=== PATIENT | male | born 1930 | race Caucasian/White ===

== ENCOUNTER 2017-02-27 17:06 | Emergency (ER) | payer MEDICARE | END 2017-02-27 18:29 | disposition home or self-care (01) | LOC: ERS 17:06 | DX: T16.2XXA Foreign body in left ear, initial encounter (principal); S00.412A Abrasion of left ear, initial encounter; I48.2 Chronic atrial fibrillation; I10 Essential (primary) hypertension; X58.XXXA Exposure to other specified factors, initial encounter | CPT/HCPCS: 99282 ==

== ENCOUNTER 2017-04-03 12:15 | Emergency (ER) | payer MEDICARE, OTHER ==
[2017-04-03 13:13] LABS: Hematocrit 34.1 % (42.0-52.0); Mean Platelet Volume 7.3 fL (7.4-10.4); Red Blood Cell (RBC) Count 3.63 mill/uL (4.70-6.10); White Blood Cell (WBC) Count 3.3 thou/uL (4.8-10.8)
[2017-04-03 13:37] LABS: ALT (SGPT) Less than 7 U/L (8-55); AST (SGOT) 10 U/L (5-34); Alkaline Phosphatase 70 U/L (40-150); Anion Gap 11 mmol/L (10-20); BUN (Urea Nitrogen) 11 mg/dL (8.4-25.7); Bilirubin, Total 0.4 mg/dL (0.2-1.2); Calc. Creatinine Clearance 0 mL/min (70-130); Calcium 8.1 mg/dL (7.8-10.44); Carbon Dioxide 23 mmol/L (23-31); Chloride 105 mmol/L (98-107); Estimated GFR-MDRD 80; Globulin 2.5 g/dL (2.4-3.5); Protein, Total 5.9 g/dL (5.8-8.1)
[2017-04-03 13:38] LABS: Troponin I Less than 0.010 ng/mL (< 0.028)
[2017-04-03 13:43] LABS: Band 1 % (5-11); Neutrophil 83 % (42-75)
--- NOTE | 2017-05-09 12:48 | EKG ---
Test Reason : HX AFIB Blood Pressure : / mmHG Vent. Rate : 067 BPM Atrial Rate : 080 BPM P-R Int : 000 ms QRS Dur : 096 ms QT Int : 446 ms P-R-T Axes : 000 000 190 degrees QTc Int : 471 ms Atrial fibrillation Prolonged QT Abnormal ECG Baseline Artifact Present Confirmed by PANCHO PADILLA, LILIA ([id number]), editor index GLADYS RHOADES ([id number]) on 05/09/2017 12:47:59 PM Referred By: DR DELEON Confirmed By:LILIA DELEON MD
== END 2017-04-03 14:33 | disposition home or self-care (01) ==
LOC: ERS 12:15
DX: R55 Syncope and collapse (principal); I48.91 Unspecified atrial fibrillation; I10 Essential (primary) hypertension; Z79.899 Other long term (current) drug therapy; Z79.02 Long term (current) use of antithrombotics/antiplatelets
CPT/HCPCS: 36415; 80053; 82553; 84484; 85025; 93005

== ENCOUNTER 2017-05-29 13:18 | Outpatient (CLI) | payer MEDICARE ==
[2017-05-29] MEDS ORDERED: Iopamidol 370 76% 100 ML VIAL ONE (16:24)
== END 2017-05-29 13:19 | disposition home or self-care (01) ==
LOC: BICCT 13:18
PROVIDERS: ATTEND Internal Medicine Cardiovascular Disease
DX: I71.2 Thoracic aortic aneurysm, without rupture (principal)
CPT/HCPCS: 71275

== ENCOUNTER 2018-11-27 09:24 | Outpatient (CLI) | payer MEDICARE ==
--- NOTE | 2018-11-27 11:53 | CT ---
CT arteriogram chest with IV contrast and 3-D imaging HISTORY: Thoracic aortic aneurysm. Follow-up. COMPARISON: 05/29/2017 and 05/16/2016. FINDINGS: There is good contrast opacification of the thoracic aorta with normal branching of the gre at vessels at the aortic arch. Dilatation of the ascending aorta is again demonstrated. AP diameter of 4.9 cm is unchanged. Oblique diameter of 5.2 cm is also unchanged descending thoracic aorta is of normal caliber. Pulmonary arteries are partially opacified with no large central filling defect. No enlarged lymph nodes or pleural fluid. No pneumothorax. Areas of scarring and nonspecific lymph nodes are stable. Degenerative changes thoracic spine. IMPRESSION: Stable CT appearance of the a ascending thoracic aortic aneurysm. No new abnormalities. Atherosclerosis.
[2018-11-27] MEDS ORDERED: Iopamidol 370 76% 100 ML VIAL ONE (13:33)
== END 2018-11-27 09:25 | disposition home or self-care (01) ==
LOC: CT 09:24
PROVIDERS: ATTEND Internal Medicine Cardiovascular Disease
DX: I71.2 Thoracic aortic aneurysm, without rupture (principal); I35.1 Nonrheumatic aortic (valve) insufficiency; R93.1 Abnormal findings on diagnostic imaging of heart and coronary circulation; I70.90 Unspecified atherosclerosis
CPT/HCPCS: 71275; 82565; Q9967

== ENCOUNTER 2019-04-16 14:27 | Observation (INO) | payer MEDICARE ==
[2019-04-16 15:11] LABS: Hemoglobin 11.7 g/dL (14.0-18.0); Mean Corpuscular HGB CONC 33.2 g/dL (32.0-36.0); Mean Corpuscular Hemoglobin 30.3 pg (27.0-31.0); Mean Corpuscular Volume 91.5 fL (78.0-98.0); Mean Platelet Volume 8.3 fL (7.4-10.4); Platelet Count 168 thou/uL (130-400); RBC Distribution Width 11.6 % (11.5-14.5); Red Blood Cell (RBC) Count 3.86 mill/uL (4.70-6.10); White Blood Cell (WBC) Count 3.5 thou/uL (4.8-10.8)
[2019-04-16 15:26] LABS: ALT (SGPT) 8 U/L (8-55); AST (SGOT) 13 U/L (5-34); Albumin 4.3 g/dL (3.4-4.8); Alkaline Phosphatase 77 U/L (40-110); Anion Gap 12 mmol/L (10-20); BUN (Urea Nitrogen) 14 mg/dL (8.4-25.7); Bilirubin, Total 0.5 mg/dL (0.2-1.2); CK (CPK) 58 U/L (30-200); Calc. Creatinine Clearance 0 mL/min (70-130); Carbon Dioxide 27 mmol/L (23-31); Chloride 100 mmol/L (98-107); Estimated GFR-MDRD 66; Globulin 2.1 g/dL (2.4-3.5); Glucose 157 mg/dL (83-110); Potassium 3.8 mmol/L (3.5-5.1); Protein, Total 6.4 g/dL (5.8-8.1); Sodium 135 mmol/L (136-145)
[2019-04-16 15:28] LABS: Band 9 % (5-11); Lymphocytes 10 % (21-51); MDiff Complete? YES; Monocytes 13 % (0-10); Neutrophil 45 % (42-75); Ovalocytes SLIGHT = 2-5 cells (100X) (0-1/hpf); Platelet Morphology Comment Appears Adequate; Polychromasia SLIGHT = 2-3 cells (100X) (0-2/hpf); Reactive Lymphocytes 23 % (0-10)
--- NOTE | 2019-04-16 15:28 | RAD ---
XR Chest 1 View Portable History: Syncope Comparison: Chest radiograph 2016 Findings: There is a well-circumscribed lytic focus within the proximal left humeral diaphysis. Lungs are clear. No pneumothorax. No effusion. Heart size mildly enlarged. Mild vascular calcifications. Impression: 1. No acute intrathoracic normality. 2. Well-defined lytic focus within the proximal left humeral diaphysis. This is incompletely evaluate d. Nonemergent MRI with and without contrast recommended. 3. Mild ectasia of the ascending aorta.
[2019-04-16] MEDS ORDERED: Sodium Chloride 0.9% 1,000 ML IV SCH (21:30)
[2019-04-16 22:16] LABS: Thyroid Stimulating Hormone 0.5212 uIU/mL (0.35-4.94)
--- NOTE | 2019-04-16 23:08 | HP ---
TIME OF ADMISSION: 2000 hours. PRIMARY CARE PHYSICIAN: Dr. Justus Pacheco. CHIEF COMPLAINT: Leg weakness. HISTORY OF PRESENT ILLNESS: Mr. Ceron is a pleasant 88-year-old gentleman, who has a history of atrial fibrillation, hyperlipidemia, and hypertension, also history of prostate cancer, for which he completed chemoradiation. The patient presents after having a sudden onset of leg weakness while shopping at [employer]. The patient states he felt as if his legs might give way, therefore he lowered himself to the ground. Denies experiencing any dizziness or lightheadedness. Did not have any chest pain, palpitations, or shortness of breath. No diaphoresis, nausea, or vomiting. Denies any abdominal pain. Has not had any recent fevers, chills, or sweats. No cough. Overall, he has felt very well in himself the last few days, including today. The patient states EMS came and took him out in a stretcher; however, since arriving to the emergency department, he has walked to the bathroom four times on his own without any difficulty. He no longer is experiencing leg weakness. In the emergency department, he underwent an EKG, which showed normal sinus rhythm with a heart rate of 67 with unifocal premature ventricular complexes. Normal ST changes and normal T-waves. A repeat EKG was done showing a normal sinus rhythm with a heart rate of 70 with PACs present. No ST changes or T-wave abnormalities. Laboratory studies were done showing white count of 3.5, hemoglobin of 11.7, hematocrit 35.3, platelets 168, and neutrophils 45%. Sodium 135, potassium 3.8, BUN 14, creatinine 1.06, and GFR 66, which appears to be stable. Calcium 9.0. LFTs unremarkable. CK 58, troponin negative. Albumin 4.3. BNP 194.2. Chest x-ray was done in the emergency department showing no acute intrathoracic abnormality. Well-defined lytic focus seen within the proximal left humeral diaphysis. Nonemergent MRI was recommended. Also present was mild ectasia of the ascending aorta. PAST MEDICAL HISTORY: 1. Hypertension. 2. Hyperlipidemia. 3. Atrial fibrillation. 4. History of prostate cancer, status post chemoradiation therapy. 5. History of thoracic aortic aneurysm, last CT was done in November 2018, showing stable appearance with it measuring 4.9 cm in AP diameter and 5.2 cm in oblique diameter. PAST SURGICAL HISTORY: Tonsillectomy. SOCIAL HISTORY: The patient lives with his . Denies any alcohol consumption, smoking, or illicit drug use. He mobilizes independently. ALLERGIES: NO KNOWN DRUG ALLERGIES. CURRENT MEDICATIONS: 1. Aspirin. 2. Clopidogrel. 3. Nifedipine. 4. Vitamin B12. 5. Fosinopril. 6. Atorvastatin. 7. CoQ10. 8. Isosorbide dinitrate. 9. Hydralazine. PHYSICAL EXAMINATION: GENERAL: The patient appears well developed, well nourished, and is in no acute distress. He is resting comfortably on the stretcher. VITAL SIGNS: Temperature 98.5, pulse 87, blood pressure 189/88, respirations 18, and O2 saturation 95% on room air. HEENT: Normocephalic and atraumatic. Pupils are equal, round, and reactive to light. Sclerae icterus. Oropharynx is clear. NECK: Supple without lymphadenopathy. LUNGS: Clear to auscultation bilaterally without any wheezes, rales, or rhonchi. CARDIAC: Regular rate and rhythm without audible murmurs, rubs, or gallops. ABDOMEN: Soft, nontender, nondistended. Normoactive bowel sounds present. No guarding or rigidity. No renal angle tenderness. EXTREMITIES: No lower leg swelling or edema. NEUROLOGIC: Alert and oriented x3. Power 5/5 in all limbs. Sensation intact. No neuro deficits. No cerebellar signs. SKIN: Warm and dry. INVESTIGATIONS: As mentioned above in HPI. IMPRESSION AND PLAN: Mr. Ceron is a very pleasant 88-year-old gentleman, who presents with sudden onset of lower extremity weakness causing him to lower himself to the ground, but denies any fall or injury. No preceding chest pain, lightheadedness, dizziness, or shortness of breath. He feels well in himself. He is being admitted for further workup and investigation. 1. Lower extremity weakness, presyncope. The patient is being admitted to telemetry for continuous cardiac monitoring. We will add repeat troponin, TSH, folic acid, and vitamin B12. We will obtain urinalysis to assess for any underlying UTI that might have caused him to experience weakness. We will obtain orthostatic blood pressures. 2. Lytic lesion noted on left humerus. MRI to be done tomorrow. 3. Atrial fibrillation. Resume home medication once verified. As mentioned, the patient will be on continuous cardiac monitoring. 4. Hypertension. Monitor blood pressure and resume home medications once verified. 5. Hyperlipidemia. Resume home medications once verified. 6. Gastrointestinal prophylaxis. Famotidine 20 mg b.i.d. 7. Deep venous thrombosis prophylaxis. Mechanical SCDs. 8. Code status, full. Surrogate decision maker is his , Steffany Ceron. The patient's case was discussed with attending, who agrees with plan of care as described above. Job ID: [id number]
[2019-04-17 05:35] LABS: Bacteria/HPF None Seen HPF (None Seen); Bilirubin Negative (Negative); Blood, Urine Negative (Negative); Clarity Clear (Clear); Glucose, Urine (Dipstick) Normal (Negative); Leukocyte Negative Leu/uL (Negative); Nitrite Negative (Negative); Protein, Urine (Dipstick) Negative (Neg-Trace); Squamous Epithelial None Seen HPF (0-3); Urobilinogen Normal mg/dL (Less than 2); WBC/HPF 0-3 HPF (0-3)
[2019-04-17 05:39] LABS: Urine Culture Reflex No No
[2019-04-17 06:49] LABS: Hemoglobin 11.8 g/dL (14.0-18.0); Mean Corpuscular HGB CONC 33.9 g/dL (32.0-36.0); Mean Corpuscular Hemoglobin 30.8 pg (27.0-31.0); Mean Corpuscular Volume 90.9 fL (78.0-98.0); Mean Platelet Volume 8.1 fL (7.4-10.4); Platelet Count 150 thou/uL (130-400); RBC Distribution Width 11.7 % (11.5-14.5); Red Blood Cell (RBC) Count 3.84 mill/uL (4.70-6.10); White Blood Cell (WBC) Count 5.1 thou/uL (4.8-10.8)
[2019-04-17 07:10] LABS: Anion Gap 11 mmol/L (10-20); BUN (Urea Nitrogen) 13 mg/dL (8.4-25.7); Calc. Creatinine Clearance 0 mL/min (70-130); Calcium 8.9 mg/dL (7.8-10.44); Carbon Dioxide 27 mmol/L (23-31); Chloride 105 mmol/L (98-107); Estimated GFR-MDRD 72; Glucose 90 mg/dL (83-110); Potassium 3.7 mmol/L (3.5-5.1); Sodium 139 mmol/L (136-145)
[2019-04-17 07:53] LABS: Band 4 % (5-11); Eosinophils 1 % (0-10); Lymphocytes 15 % (21-51); MDiff Complete? YES; Monocytes 9 % (0-10); Neutrophil 66 % (42-75); Platelet Morphology Comment Appears Adequate; Polychromasia SLIGHT = 2-3 cells (100X) (0-2/hpf); Reactive Lymphocytes 5 % (0-10)
[2019-04-17] MEDS ORDERED: Famotidine 20 MG TAB PO SCH (09:00)
[2019-04-17] MEDS ORDERED: Famotidine 20 MG TAB ONE (09:11)
[2019-04-17] MEDS ORDERED: Clopidogrel Bisulfate 75 MG TAB PO SCH (10:15)
[2019-04-17] MEDS ORDERED: hydrALAZINE 25 MG TAB PO SCH ×4 (10:15→15:00)
[2019-04-17] MEDS ORDERED: Aspirin 81 mg Enteric Coated Tablet PO SCH (10:15)
[2019-04-17] MEDS ORDERED: Lisinopril 20 MG TAB PO SCH (10:15)
[2019-04-17] MEDS ORDERED: NIFEdipine XL 60 MG TAB PO SCH (10:15)
[2019-04-17] MEDS ORDERED: Isosorbide Dinitrate 5 MG TAB PO SCH ×2 (10:30→15:00)
[2019-04-17] MEDS ORDERED: NIFEdipine XL 30 MG TAB PO SCH (10:30)
[2019-04-17] MEDS ORDERED: Clopidogrel Bisulfate 75 MG TAB ONE (10:44)
[2019-04-17] MEDS ORDERED: hydrALAZINE 25 MG TAB ONE (10:44)
[2019-04-17] MEDS ORDERED: Aspirin Chewable 81 MG TAB ONE (10:44)
[2019-04-17] MEDS ORDERED: Lisinopril 10 MG TAB ONE (10:44)
[2019-04-17] MEDS ORDERED: Lisinopril 10 MG TAB PO SCH (10:45)
--- NOTE | 2019-04-17 12:12 | PDOC.HOSPP ---
- Subjective Encounter Date: 04/17/19 Encounter Time: 09:30 Subjective: Patient seen and examined for Near syncope. No CP or SOB. No new complaints. No overnight events - Objective Vital Signs & Weight: Vital Signs (12 hours) Pulse BP 04/17/19 10:46 60 180/77 H Result Diagrams: 04/17/19 06:38 04/17/19 06:38 Radiology Reviewed by me: Yes (CXR - No infiltrate) EKG Reviewed by me: Yes (Tele SR) Hospitalist ROS - Review of Systems Respiratory: denies: cough, dry, shortness of breath, hemoptysis, SOB with excertion, pleuritic pain, sputum, wheezing, other Cardiovascular: denies: chest pain, palpitations, orthopnea, paroxysmal noc. dyspnea, edema, light headedness, other Gastrointestinal: denies: nausea, vomiting, abdominal pain, diarrhea, constipation, melena, hematochezia, other - Medication Medications: Active Medications Generic Name Dose Route Start Last Admin Trade Name Freq PRN Reason Stop Dose Admin Aspirin 81 mg 04/17/19 10:15 04/17/19 10:46 Ecotrin PO 04/17/19 12:15 81 mg NOW RAMONA Administration Clopidogrel Bisulfate 75 mg 04/17/19 10:15 04/17/19 10:46 Plavix PO 04/17/19 12:15 75 mg NOW RAMONA Administration Hydralazine HCl 25 mg 04/17/19 10:30 04/17/19 10:46 Apresoline PO 04/17/19 13:00 25 mg NOW RAMONA Administration Lisinopril 10 mg 04/17/19 10:45 04/17/19 10:46 Zestril PO 04/17/19 13:00 10 mg NOW RAMONA Administration - Exam General Appearance: NAD Heart: RRR, no gallops, no rubs, normal peripheral pulses Respiratory: CTAB, no wheezes, no rales, no ronchi, normal chest expansion Gastrointestinal: soft, non-tender, non-distended, normal bowel sounds Extremities: no cyanosis, no clubbing, no edema Neurological: no new deficit Psychiatric: normal affect, A&O x 3 Hosp A/P - Plan DVT proph w/SCDs Near syncope HTN HLD Par Afib h/o Prostate Ca h/o thoracic Aortic aneurysm Hyponatremia CKD 2 PLAN: 04/17 Resume Hydralazine/Nitrate Reduce Procardia XL dose Resume ASA/Plavix Case d/w Dr Burgess Check Orthostatic vitals
[2019-04-17 14:25] VITALS: BP 170/74
--- NOTE | 2019-04-17 18:27 | CON ---
DATE OF CONSULTATION: HISTORY OF PRESENT ILLNESS: An 88-year-old gentleman with a history of hypertension, who felt weak and nearly lost consciousness. The patient has a long history of hypertension. The patient was in his usual state of health when he had not been eating. He felt lightheaded and nearly lost consciousness. The patient denied having any chest discomfort. The patient states he had not been eating well. PAST MEDICAL HISTORY: 1. Atrial fibrillation. 2. Hypertension. 3. Prostate carcinoma. 4. Dyslipidemia. PAST SURGICAL HISTORY: Tonsillectomy. SOCIAL HISTORY: Nonsmoker. MEDICATIONS: See nursing list. PHYSICAL EXAMINATION: GENERAL: A well-developed gentleman, in no acute distress. VITAL SIGNS: Blood pressure is 170/74. NECK: No jugular venous distention. LUNGS: Clear to auscultation. HEART: Regular rate and rhythm. Normal S1 and S2. 1/6 systolic murmur. ABDOMEN: Nondistended. EXTREMITIES: Showed no edema. LABORATORY RESULTS: White blood cell count 5.1, hemoglobin 11.8, hematocrit 34.9, and platelets 150. Sodium is 139, potassium 3.7, chloride 105, bicarbonate 27, BUN 13, and creatinine 0.98. Troponin less than 0.01. IMPRESSION: 1. Near syncope. 2. Hypertension. 3. History of atrial fibrillation. 4. Prostate carcinoma. PLAN: This gentleman had a near syncopal episode. His blood pressure apparently was reportedly very low. He had not been eating well. From a cardiac standpoint, I would agree with outpatient cardiac monitoring. The patient needs to avoid dehydration and continue to eat appropriately and monitor his blood pressure. Job ID: [id number] [facility]
--- NOTE | 2019-04-18 08:31 | DIS ---
DATE OF ADMISSION: 04/16/2019 DATE OF DISCHARGE: 04/17/2019 DISCHARGE DISPOSITION: Home. FOLLOWUP: 1. Follow up with primary care physician, Dr. Justus Pacheco in 1 week. 2. Follow up with Dr. Calos Burgess as scheduled. Event monitor will be arranged by Dr. Burgess. DISCHARGE MEDICATION: The patient was advised to reduce the dose of fosinopril to 20 mg daily and to monitor his blood pressure on a daily basis. All other home medications were left unchanged. Fall precaution with 24-hour supervision was recommended. The patient was seen and examined on the day of discharge. Please refer to my progress note for details. BRIEF HOSPITAL COURSE: The patient is an 88-year-old male with atrial fibrillation, hypertension, and dyslipidemia, presented to the hospital with near syncope while he was at [facility]. Please refer to the history and physical for further details. The patient was admitted to the hospital with a near syncopal episode. He was monitored in the telemetry unit. His telemetry rhythm did not show significant arrhythmias. He was evaluated by Cardiology, Dr. Calos Burgess. There was some confusion with his medications. He gets fosinopril from the [place] and all other medications from Dr. Burgess'madonna. Dr. Burgess was not aware that the patient was on fosinopril. He was advised to reduce the dose of fosinopril or to hold it if his blood pressure is below 130 to 140. Event monitor will be arranged by Dr. Burgess. His echocardiogram showed ejection fraction 50% to 55% with mildly dilated left atrium, moderate aortic regurgitation, and mild mitral regurgitation. He has been cleared by Cardiology for discharge. FINAL DIAGNOSES: 1. Near syncope, probably secondary to hypotension present on admission. 2. Hypertension. 3. Hyperlipidemia. 4. Paroxysmal atrial fibrillation. 5. History of prostate cancer. 6. History of thoracic aortic aneurysm. 7. Hyponatremia with sodium 135 present on admission. 8. Chronic kidney disease, stage 2. 9. Chronic anemia. Plan of care was discussed with the patient and the family in detail. They stated understanding. Job ID: [id number]
[2019-04-18] MEDS ORDERED: Aspirin 81 mg Enteric Coated Tablet PO SCH (09:00)
[2019-04-18] MEDS ORDERED: Lisinopril 20 MG TAB PO SCH (09:00)
[2019-04-18] MEDS ORDERED: Atorvastatin Calcium 20 MG TAB PO SCH (09:00)
[2019-04-18] MEDS ORDERED: Clopidogrel Bisulfate 75 MG TAB PO SCH (09:00)
[2019-04-18] MEDS ORDERED: NIFEdipine XL 60 MG TAB PO SCH (09:00)
== END 2019-04-17 16:26 | disposition home or self-care (01) ==
LOC: ERS 14:27 → ERHOLD 16:29
PROVIDERS: ADMIT Internal Medicine; ATTEND Internal Medicine
DX: R55 Syncope and collapse (principal); I12.9 Hypertensive chronic kidney disease with stage 1 through stage 4 chronic kidney disease, or unspecified chronic kidney disease; N18.2 Chronic kidney disease, stage 2 (mild); D63.1 Anemia in chronic kidney disease; E78.5 Hyperlipidemia, unspecified; I48.0 Paroxysmal atrial fibrillation; E87.1 Hypo-osmolality and hyponatremia; I71.2 Thoracic aortic aneurysm, without rupture; Z79.02 Long term (current) use of antithrombotics/antiplatelets; Z79.82 Long term (current) use of aspirin; Z79.899 Other long term (current) drug therapy
CPT/HCPCS: 71045; 80048; 81001; 82550; 82607; 82746; 83735; 83880; 84484 ×2; 85025; 93005; 93306; 97139; 99285; G0378 ×2; 36415; 36416; 80053; 84443

== ENCOUNTER 2020-12-29 14:43 | Outpatient (CLI) | payer MEDICARE | END 2020-12-29 14:44 | disposition home or self-care (01) | LOC: BICULT 14:43 | PROVIDERS: ATTEND Family Medicine | DX: G45.9 Transient cerebral ischemic attack, unspecified (principal); R42 Dizziness and giddiness | CPT/HCPCS: 93880 ==

== ENCOUNTER 2021-02-12 18:22 | Inpatient (IN) | payer OTHER, MEDICARE ==
[2021-02-12 19:48] LABS: Hemoglobin 10.5 g/dL (14.0-18.0); Mean Corpuscular HGB CONC 34.3 g/dL (32.0-36.0); Mean Corpuscular Hemoglobin 31.5 pg (27.0-31.0); Mean Corpuscular Volume 91.9 fL (78.0-98.0); Mean Platelet Volume 7.9 fL (7.4-10.4); Platelet Count 186 thou/uL (130-400); RBC Distribution Width 11.4 % (11.5-14.5); Red Blood Cell (RBC) Count 3.32 mill/uL (4.70-6.10); White Blood Cell (WBC) Count 4.1 thou/uL (4.8-10.8)
[2021-02-12 19:58] LABS: PTT 38.3 sec (22.9-36.1); Prothrombin Time 13.1 sec (12.0-14.7)
[2021-02-12 20:06] LABS: ALT (SGPT) 7 U/L (8-55); AST (SGOT) 14 U/L (5-34); Albumin 4.2 g/dL (3.4-4.8); Alkaline Phosphatase 79 U/L (40-110); Anion Gap 14 mmol/L (10-20); BUN (Urea Nitrogen) 15 mg/dL (8.4-25.7); Bilirubin, Total 0.5 mg/dL (0.2-1.2); Calc. Creatinine Clearance 0 mL/min (70-130); Carbon Dioxide 23 mmol/L (23-31); Chloride 98 mmol/L (98-107); Globulin 2.6 g/dL (2.4-3.5); Glucose 106 mg/dL (83-110); Protein, Total 6.8 g/dL (5.8-8.1); Sodium 131 mmol/L (136-145)
[2021-02-12 20:33] LABS: Band 13 % (5-11); Lymphocytes 19 % (21-51); MDiff Complete? YES; Monocytes 17 % (0-10); Neutrophil 51 % (42-75)
[2021-02-12] MEDS ORDERED: Senokot S 8.6-50 MG TAB PO PRN (20:35)
[2021-02-12] MEDS ORDERED: Ondansetron PF 4 MG/2 ML Vial IVP PRN (20:35)
[2021-02-12] MEDS ORDERED: Acetaminophen 325 MG TAB PO PRN (20:35)
[2021-02-12 20:52] LABS: SARS-CoV-2 NAA Rapid Test Not Detected (NotDetected)
[2021-02-12 21:37] VITALS: BMI 19.8
[2021-02-12 21:43] LABS: Anion Gap 13 mmol/L (10-20); BUN (Urea Nitrogen) 14 mg/dL (8.4-25.7); Calc. Creatinine Clearance 53 mL/min (70-130); Calcium 9.2 mg/dL (7.8-10.44); Carbon Dioxide 25 mmol/L (23-31); Chloride 99 mmol/L (98-107); Glucose 113 mg/dL (83-110); Potassium 4.3 mmol/L (3.5-5.1); Sodium 133 mmol/L (136-145)
[2021-02-12] MEDS ORDERED: hydrALAZINE 25 MG TAB ONE (21:52)
[2021-02-12] MEDS: hydrALAZINE 25 MG TAB PO SCH (21:57)
[2021-02-12 21:59] LABS: Band 18 % (5-11); Hemoglobin 10.6 g/dL (14.0-18.0); Lymphocytes 18 % (21-51); MDiff Complete? YES; Mean Corpuscular HGB CONC 34.6 g/dL (32.0-36.0); Mean Corpuscular Volume 92.6 fL (78.0-98.0); Monocytes 9 % (0-10); Neutrophil 55 % (42-75); Platelet Count 179 thou/uL (130-400); RBC Distribution Width 11.3 % (11.5-14.5); White Blood Cell (WBC) Count 3.9 thou/uL (4.8-10.8)
[2021-02-12] MEDS ORDERED: Famotidine 20 MG TAB ONE (22:08)
[2021-02-12] MEDS: Isosorbide Dinitrate 20 MG TAB PO SCH (22:15)
[2021-02-12] MEDS: Famotidine 20 MG TAB PO SCH (22:15)
[2021-02-13 04:48] LABS: Mean Corpuscular Hemoglobin 30.8 pg (27.0-31.0); Mean Corpuscular Volume 93.2 fL (78.0-98.0); Mean Platelet Volume 8.1 fL (7.4-10.4); Platelet Count 230 thou/uL (130-400); RBC Distribution Width 11.3 % (11.5-14.5); Red Blood Cell (RBC) Count 2.93 mill/uL (4.70-6.10); White Blood Cell (WBC) Count 2.8 thou/uL (4.8-10.8)
[2021-02-13 04:50] LABS: Anion Gap 15 mmol/L (10-20); BUN (Urea Nitrogen) 14 mg/dL (8.4-25.7); Calc. Creatinine Clearance 54 mL/min (70-130); Calcium 8.7 mg/dL (7.8-10.44); Carbon Dioxide 20 mmol/L (23-31); Chloride 102 mmol/L (98-107); Glucose 88 mg/dL (83-110); Potassium 4.1 mmol/L (3.5-5.1); Sodium 133 mmol/L (136-145)
[2021-02-13 05:16] LABS: Band 12 % (5-11); Lymphocytes 30 % (21-51); MDiff Complete? YES; Monocytes 4 % (0-10); Neutrophil 54 % (42-75)
[2021-02-13] MEDS ORDERED: Famotidine 20 MG TAB ONE (08:02)
[2021-02-13] MEDS ORDERED: Lisinopril 10 MG TAB ONE (08:02)
[2021-02-13] MEDS ORDERED: Atorvastatin Calcium 20 MG TAB PO SCH (09:00)
[2021-02-13] MEDS ORDERED: NIFEdipine XL 60 MG TAB PO SCH (09:00)
[2021-02-13] MEDS ORDERED: Lisinopril 20 MG TAB PO SCH (09:00)
[2021-02-13] MEDS: hydrALAZINE 25 MG TAB PO SCH (09:11)
[2021-02-13] MEDS: Famotidine 20 MG TAB PO SCH (09:11)
[2021-02-13] MEDS: Isosorbide Dinitrate 20 MG TAB PO SCH (09:13)
[2021-02-13 11:36] LABS: Bacteria/HPF None Seen HPF (None Seen); Bilirubin Negative (Negative); Blood, Urine Negative (Negative); Clarity Clear (Clear); Glucose, Urine (Dipstick) Normal (Negative); Ketone, Urine Negative (Negative); Leukocyte Negative Leu/uL (Negative); Nitrite Negative (Negative); Protein, Urine (Dipstick) Negative (Neg-Trace); RBC/HPF 0-3 HPF (0-3); Specific Gravity, Urine 1.011 (1.002-1.036); Squamous Epithelial None Seen HPF (0-3); Urobilinogen Normal mg/dL (Less than 2); WBC/HPF None Seen HPF (0-3)
[2021-02-13 11:39] LABS: Urine Culture Reflex No No
[2021-02-13 13:52] VITALS: BP 176/74; TEMP 97.6
== END 2021-02-13 13:52 | disposition home or self-care (01) | DRG 87 ==
LOC: ERS 18:22 → ERHOLD 20:35
PROVIDERS: ADMIT Neurological Surgery; ATTEND Neurological Surgery
PROC: 30233R1 Transfusion of Nonautologous Platelets into Peripheral Vein, Percutaneous Approach (ICD-10-PCS; principal; 2021-02-12)
DX: S06.4X0A Epidural hemorrhage without loss of consciousness, initial encounter (principal); Z20.822 Contact with and (suspected) exposure to COVID-19; I48.91 Unspecified atrial fibrillation; E78.00 Pure hypercholesterolemia, unspecified; I10 Essential (primary) hypertension; W01.0XXA Fall on same level from slipping, tripping and stumbling without subsequent striking against object, initial encounter; D72.819 Decreased white blood cell count, unspecified; D72.825 Bandemia; F17.210 Nicotine dependence, cigarettes, uncomplicated; E78.5 Hyperlipidemia, unspecified; Z79.82 Long term (current) use of aspirin; Z79.899 Other long term (current) drug therapy; Z85.46 Personal history of malignant neoplasm of prostate
CPT/HCPCS: 36415; 36430; 70450; 71045; 80048; 80053; 81001; 84484; 85025; 85610; 85730; 86850; 86900; 86901; 93005; P9035; U0002

== ENCOUNTER 2021-03-16 13:58 | Outpatient (CLI) | payer MEDICARE | END 2021-03-16 13:59 | disposition home or self-care (01) | LOC: BICCT 13:58 | PROVIDERS: ATTEND Neurological Surgery | DX: I62.9 Nontraumatic intracranial hemorrhage, unspecified (principal); I67.82 Cerebral ischemia; S06.4X9A Epidural hemorrhage with loss of consciousness of unspecified duration, initial encounter | CPT/HCPCS: 70450 ==